=== PATIENT | female | born 1985 | race Caucasian/White ===

== ENCOUNTER → 2017-10-21 | Outpatient (REF) | payer OTHER | LOC: M LAB REF 09:27 | DX: J11.1 Influenza due to unidentified influenza virus with other respiratory manifestations (principal); J02.0 Streptococcal pharyngitis ==

== ENCOUNTER → 2018-01-02 | Outpatient (CLI) | payer OTHER | LOC: M LAB 16:28 | DX: E55.9 Vitamin D deficiency, unspecified (principal); F41.1 Generalized anxiety disorder | CPT/HCPCS: 84443 ==

== ENCOUNTER → 2018-02-13 | Outpatient (REF) | payer OTHER ==
[2018-02-15 14:14] LABS: HPV HYBRID CAPTURE II Negative (Negative)
== END ==
LOC: M LAB REF 18:42
DX: Z01.419 Encounter for gynecological examination (general) (routine) without abnormal findings (principal); Z11.51 Encounter for screening for human papillomavirus (HPV)
CPT/HCPCS: G0123

== ENCOUNTER → 2018-04-09 | Outpatient (REF) | payer OTHER | LOC: M LAB REF 17:01 | DX: R30.0 Dysuria (principal) ==

== ENCOUNTER 2018-05-20 09:32 | Day surgery (SDC) | payer OTHER ==
[~2018-05-20 09:32] MED LIST: LIDOCAINE 1% MDV 20ML VIAL SQ
[2018-05-20] MEDS ORDERED: LR 1,000 ML IV ×3 (09:45→17:00)
[2018-05-20 10:03] LABS: CONTROL LINE UCG INT CTR LINE PRESENT; URINE PREG TEST NEGATIVE (NEGATIVE)
[2018-05-20 10:05] LABS: HEMATOCRIT 40.7 % (36.0-47.0); HEMOGLOBIN 13.4 g/dl (12.0-15.5); MEAN CORPUSCULAR HEMOGLOBIN 30.9 pg (27.0-33.0); MEAN CORPUSCULAR HGB CONC 32.9 g/dl (32.0-36.5); PLATELET COUNT, AUTOMATED 235 10^3/uL (150-450); RED BLOOD COUNT 4.33 10^6/uL (4.00-5.40); RED CELL DISTRIBUTION WIDTH 12.1 % (11.5-14.5); WHITE BLOOD COUNT 8.6 10^3/uL (4.0-10.0)
[2018-05-20] MEDS: LR 1,000 ML IV (10:20)
[2018-05-20] MEDS ORDERED: PROPOFOL 200 MG/20 ML VIAL As Ordered (11:34)
[2018-05-20] MEDS ORDERED: ONDANSETRON 4MG/2ML VIAL (J2405) As Ordered (11:34)
[2018-05-20] MEDS ORDERED: LIDOCAINE 2% INJ 100 MG/5 ML SDV (FOR ANES.) As Ordered (11:34)
[2018-05-20] MEDS ORDERED: ROCURONIUM BROMIDE 50 MG/5 ML VIAL As Ordered ×2 (11:34→14:08)
[2018-05-20] MEDS ORDERED: dexameTHASONE 4 MG/ML 1ML VIAL (J1100) As Ordered (11:34)
[2018-05-20] MEDS ORDERED: MIDAZOLAM INJ 2 MG/2 ML VIAL (J2250) As Ordered (12:39)
[2018-05-20] MEDS ORDERED: fentaNYL 100 MCG/2 ML INJECTION (J3010) As Ordered ×3 (12:39→16:20)
[2018-05-20] MEDS: BUPIVACAINE HCL 0.25% 30 ML VIAL As Ordered (13:20)
[2018-05-20] MEDS: BUPIVACAINE/EPIN 0.25% 30 ML VIAL As Ordered (14:54)
[2018-05-20] MEDS ORDERED: GLYCOPYRROLATE INJ 0.2 MG/ML 2 ML VIAL As Ordered ×2 (15:23)
[2018-05-20] MEDS ORDERED: NEOSTIGMINE 10 MG/10 ML VIAL (J2710) As Ordered (15:23)
[2018-05-20] MEDS ORDERED: PERCOCET 5MG/325MG TAB As Ordered (16:20)
[2018-05-20] MEDS: fentaNYL 100 MCG/2 ML INJECTION (J3010) IV ×5 (16:22→16:50)
[2018-05-20] MEDS: PERCOCET 5MG/325MG TAB PO ×2 (16:40→17:21)
[2018-05-20] MEDS ORDERED: METOCLOPRAMIDE INJ 10MG/2ML VIAL (J2765) IV (16:45)
[2018-05-20] MEDS ORDERED: ONDANSETRON 4MG/2ML VIAL (J2405) IV ×2 (16:45→23:00)
[2018-05-20] MEDS ORDERED: MEPERIDINE INJ 25 MG/ML VIAL (J2175) IV (16:45)
[2018-05-20] MEDS ORDERED: PERCOCET 5MG/325MG TAB PO (17:00)
[2018-05-20] MEDS: KETOROLAC 30 MG/ML VIAL (J1885) IV (21:10)
[2018-05-20] MEDS ORDERED: PROMETHAZINE INJ 25 MG/ML VIAL (J2550) IV (23:00)
[2018-05-20] MEDS ORDERED: OMEPRAZOLE 20 MG CAP PO (23:00)
[2018-05-21] MEDS: PERCOCET 5MG/325MG TAB PO (00:56)
[2018-05-21] MEDS: KETOROLAC 30 MG/ML VIAL (J1885) IV (04:08)
[2018-05-21] MEDS: busPIRone 10 MG TAB PO (08:57)
[2018-05-21] MEDS: DOCUSATE SODIUM 100 MG CAP PO (08:57)
[2018-05-21] MEDS: MULTIVITAMINS/MINERALS THERAP 1 TAB PO (08:57)
[2018-05-21] MEDS: VITAMIN D 1,000 INTERNATIONAL UNITS TABLET PO (08:57)
[2018-05-21] MEDS: CitaloPRAM (CeleXA) 20 MG TAB PO (08:57)
[2018-05-22] MEDS ORDERED: IBUPROFEN 800 MG TAB PO
== END 2018-05-21 11:35 | disposition home or self-care (01) ==
LOC: M SDC 09:32 → M PED 05-21 → M SDC 05-21 11:35
DX: N39.3 Stress incontinence (female) (male) (principal); N81.10 Cystocele, unspecified; N81.6 Rectocele; F90.9 Attention-deficit hyperactivity disorder, unspecified type; F41.9 Anxiety disorder, unspecified; K21.9 Gastro-esophageal reflux disease without esophagitis; Z79.899 Other long term (current) drug therapy; Z87.891 Personal history of nicotine dependence
CPT/HCPCS: 57260

== ENCOUNTER → 2021-01-11 | Outpatient (CLI) | payer OTHER ==
[~2021-01-11] MED LIST changes: +BUSP10TA; +CITA40TA4; +L-LY500T9 PO; -LIDOCAINE 1% MDV 20ML VIAL SQ; +MULT1TAB10 PO; +OMEP40CA97; +OXYC1TAB23 PO; +SUCR1SS; +VITA100067 PO; +VYVA40CA3
[2021-01-11 11:56] LABS: ALBUMIN 3.9 GM/DL (3.2-5.2); ALT/SGPT 29 U/L (12-78); BILIRUBIN,TOTAL 0.6 MG/DL (0.2-1.0); BLOOD UREA NITROGEN 13 MG/DL (7-18); CALCIUM LEVEL 9.2 MG/DL (8.5-10.1); CARBON DIOXIDE LEVEL 30 MEQ/L (21-32); CHLORIDE LEVEL 106 MEQ/L (98-107); CHOLESTEROL LEVEL 164 MG/DL (<200); CHOLESTEROL RISK RATIO 2.733 (<5); CREATININE FOR GFR 0.67 MG/DL (0.55-1.30); FREE T4 0.87 NG/DL (0.76-1.46); GLOMERULAR FILTRATION RATE > 60.0 (>60); GLUCOSE, FASTING 82 MG/DL (70-100); HDL CHOLESTEROL 60 MG/DL (>40); LDL CHOLESTEROL 78 MG/DL (<100); NON-HDL-C 104 MG/DL; POTASSIUM SERUM 4.9 MEQ/L (3.5-5.1); SODIUM LEVEL 139 MEQ/L (136-145); TOTAL PROTEIN 7.3 GM/DL (6.4-8.2); TRIGLYCERIDES LEVEL 131 MG/DL (<150)
[2021-01-11 11:57] LABS: TOTAL 25(OH) VITAMIN D 25.5 NG/ML (30.0-100.0)
== END ==
LOC: M PLALAB 09:19
PROVIDERS: ATTEND Physician Assistant
DX: E55.9 Vitamin D deficiency, unspecified (principal); E66.01 Morbid (severe) obesity due to excess calories; Z79.899 Other long term (current) drug therapy